=== PATIENT | female | born 1950 | race Caucasian/White ===

== ENCOUNTER → 2019-03-14 07:06 | Outpatient (CLI) | payer MEDICARE, SELFPAY ==
--- NOTE | 2019-03-14 07:52 | MRI_ITS ---
STUDY: MRI BRAIN WITH AND WITHOUT CONTRAST REASON FOR EXAM: Female, 68 years old. loss of smell/taste,dizziness, memory issues, H/A's, numbness of left cheek, finger tips. TECHNIQUE: Standardized multiplanar fat and water weighted pulse sequences were obtained. IV Dotarem 12 was administered for the contrast portion of the examination. COMPARISON: None. FINDINGS: Normal size of the ventricles and extra-axial spaces for the patient's age. There are a limited number of small white matter hyperintensities, distributed throughout the deep white matter tracts of the cerebral hemispheres, consistent with minimal chronic white matter ischemic changes. Normal bilateral basal ganglia. Normal thalami. There is no extra-axial fluid accumulation. Normal flow voids within the major intracranial circulation suggesting patency by spin echo criteria. Normal venous enhancement. There is no enhancing intra-axial or extra-axial abnormality. Normal sella turcica, pituitary gland, infundibular stalk, optic chiasm and hypothalamus. Normal tectal plate and pineal gland. Normal midbrain, adam and medulla. Normal cerebellum. Normal basal cisterns. Normal bilateral temporal bones. Normal bilateral internal auditory canals. MRI/Brain W/WO Contrast IMPRESSION: No acute intracranial abnormality or masses. Minimal chronic microvascular ischemic changes. Electronically Signed: Susi Knedall MD at 8:04 EDT Tel , Service support ,
[2019-03-14 07:56] LABS: CREATININE FINGERSTICK 0.7 mg/dL (0.55-1.02); EGFR FINGERSTICK > 60.0000 mL/min (>60)
== END ==
PROVIDERS: Family Provider Family Medicine; PCP Family Medicine; Referring Provider Family Medicine; Visit Provider Family Medicine
DX: R43.0 Anosmia (principal); R43.2 Parageusia; R51 Headache; R27.0 Ataxia, unspecified
CPT/HCPCS: 70553; A9575

== ENCOUNTER → 2020-01-22 20:00 | Outpatient (CLI) | payer MEDICARE, SELFPAY ==
[2020-01-07 06:24] VITALS: BMI 25.6
[2020-01-22] MEDS: Zolpidem Tartrate 5 MG Tablet PO (22:20)
== END ==
PROVIDERS: PCP Family Medicine; Visit Provider Internal Medicine Critical Care Medicine
DX: G47.33 Obstructive sleep apnea (adult) (pediatric) (principal)
CPT/HCPCS: 95811

== ENCOUNTER → 2020-02-10 06:46 | Outpatient (CLI) | payer MEDICARE, SELFPAY ==
[2020-01-07 06:24] VITALS: BMI 25.6
--- NOTE | 2020-02-10 10:38 | PFTCOMP ---
COMPLETE PULMONARY FUNCTION TEST INTERPRETATION Brief HPI: Patient is a 69 year old female, currently under the care of myself, who presents to [facility] for complete pulmonary function tests secondary to diagnosis of dyspnea. Respiratory therapist reports good effort and reproducible results. Interpretation: Forced expiration spirometry shows no large airways obstructive ventilatory defect with an FEV1 of 94% predicted. There is no significant bronchodilator response by strict ATS criteria. Spirograms are of good quality and plateau slowly, indicating slowly emptying areas of the lungs. The respiratory flow volume loop shows decreased expiratory flow rates at high lung volumes consistent with small airways obstruction. Lung volumes by body plethysmography show an elevated total lung capacity at 5.43 L, 125% predicted. All other lung volumes are increased symmetrically. Diffusion capacity by carbon monoxide is at the lower limit of normal at 66% predicted. The airway resistance is normal. No previous pulmonary function tests were available for review. Impression: Grossly normal pulmonary function test with some stigmata of small airways disease that appears to be reversible. Asthma would be a consideration.
== END ==
PROVIDERS: PCP Family Medicine; Referring Provider Internal Medicine Critical Care Medicine; Visit Provider Internal Medicine Critical Care Medicine
DX: R06.00 Dyspnea, unspecified (principal)
CPT/HCPCS: 94060; 94726; 94729

== ENCOUNTER 2020-07-20 16:48 | Outpatient (RCR) | payer MEDICARE, SELFPAY ==
[2020-04-26 10:38] VITALS: BMI 25.0
[2020-07-20] MEDS: COVID-19 VACC, MRNA(PFIZER)/PF 30 MCG/0.3 ML SYRINGE IM (16:42)
[2020-08-10] MEDS: COVID-19 VACC, MRNA(PFIZER)/PF 30 MCG/0.3 ML SYRINGE IM (16:24)
== END 2020-10-19 23:59 ==
LOC: IMMUN 16:48
PROVIDERS: PCP Family Medicine; Referring Provider Family Medicine; Visit Provider Family Medicine
DX: Z23 Encounter for immunization (principal)
CPT/HCPCS: 0001A; 0002A; 91300

== ENCOUNTER → 2020-09-13 07:08 | Outpatient (CLI) | payer MEDICARE, SELFPAY ==
[2020-08-04 13:48] VITALS: BMI 24.7
--- NOTE | 2020-09-13 07:11 | BI_ITS ---
MAMMOGRAPHY - BILATERAL SCREENING REASON FOR EXAM: Female, 70 years old. Routine annual screening examination. PERTINENT HISTORY: Aunt with breast cancer. TECHNIQUE: Digital bilateral breast kati (3D mammographic acquisition) in the CC and MLO projections. 2-D mediolateral oblique (MLO) and craniocaudad (CC) views of both breasts were obtained. CAD: Full Field Digital Mammography with Computer Added Detection was performed. COMPARISON: Comparison is made with prior outside examination dated 07/25/2016 FINDINGS: Breast Composition: There are scattered areas of fibroglandular density. There are no dominant masses or suspicious calcifications. No other significant abnormalities are identified. There has been no significant change since the prior study. BI/SCRN MAMM (CAD)W/KATI BILAT IMPRESSION: Stable bilateral screening mammogram. Yearly follow-up mammogram recommended. (A) ASSESSMENT CATEGORY: BIRADS Category 1: Negative. A letter regarding these results will be sent to the patient by the facility within 30 days. Approximately 10% of breast cancers are not detected by mammography. A normal mammogram should not delay biopsy of a clinically suspicious abnormality. [id number] Electronically Signed: Ricky Esposito MD at 9:35 EDT , Service support ,
== END ==
PROVIDERS: PCP Family Medicine; Referring Provider Family Medicine; Visit Provider Family Medicine
DX: Z12.31 Encounter for screening mammogram for malignant neoplasm of breast (principal)
CPT/HCPCS: 77063; 77067

== ENCOUNTER 2021-03-24 12:03 | Outpatient (CLI) | payer MEDICARE, SELFPAY ==
[2021-03-24] MEDS: 0.9% Saline Lock 10 ML Syringe IV (12:34)
[2021-03-24 12:40] VITALS: BP 117/81; PULSE 107; RESP 16; TEMP 37.1; O2SAT 97; BMI 23.3
[2021-03-24 13:15] VITALS: BP 118/76; PULSE 95; RESP 16; TEMP 36.9; O2SAT 97
[2021-03-24 14:13] VITALS: BP 117/55; PULSE 96; RESP 16; TEMP 36.9; O2SAT 96
== END 2021-03-24 14:14 | disposition home or self-care (01) ==
LOC: MS3OUT 12:04 → MS3 12:05
PROVIDERS: PCP Family Medicine; Referring Provider Nurse Practitioner Adult Health; Visit Provider Nurse Practitioner Adult Health
DX: Z23 Encounter for immunization (principal); U07.1 COVID-19
CPT/HCPCS: J7050; M0245; Q0245; A4216

== ENCOUNTER 2022-07-07 19:26 | Emergency (ER) | payer MEDICARE, SELFPAY ==
[2022-07-07 19:27] VITALS: BP 155/94; PULSE 100; RESP 17; TEMP 36.3; O2SAT 99; BMI 25.2
--- NOTE | 2022-07-07 20:00 | RAD_ITS ---
STUDY: X-RAY CHEST REASON FOR EXAM: Female, 72 years old. Chest pain. Asthma exacerbation for 10 days. Now with chest pain. Which extends into the jaw shoulders and arms TECHNIQUE: Single AP portable view of the chest. COMPARISON: None. FINDINGS: The lungs are clear and expanded. There is no demonstrated pleural abnormality. Normal size heart. Normal mediastinum and byron. Normal visualized pulmonary arteries. Normal visualized aortic arch and descending thoracic aorta. Fusion of the thoracolumbar spine. Normal visualized ribs, clavicles, and shoulders. There is no demonstrated abnormality of the visualized soft tissue structures of the upper abdomen. RAD/Chest 1 View (Portable) IMPRESSION: No acute cardiopulmonary disease. Electronically Signed: Oral Weinstein DO at 20:46 EST ,
--- NOTE | 2022-07-07 20:15 | EKG12_ITS ---
Test Reason : CP Blood Pressure : / mmHG Vent. Rate : 093 BPM Atrial Rate : 093 BPM P-R Int : 140 ms QRS Dur : 084 ms QT Int : 326 ms P-R-T Axes : 051 027 025 degrees QTc Int : 405 ms Normal sinus rhythm Normal ECG Confirmed by PIPER LA, JEANETTE ([id number]), multimedia editor BRET WELLS ([id number]) on 07/11/2022 8:59:21 AM Referred By: Confirmed By:JEANETTE SALDAÑA MD
--- NOTE | 2022-07-07 20:16 | EDS_ITS ---
HPI History of Present Illness Chief Complaint: Chest Pain Informant: patient Onset/Context/Timing Timing: Intermittent Quality: Positive for Pressure Location: Substernal (Radiation to back, bilateral arms, jaw) Current Severity: Gone Maximum Severity: Moderate Narrative Narrative: Patient presents after having 2 episodes of chest pain today. First occurred shortly after noon when she was riding in the backseat of a car. She developed pain which she describes as a pressure or heaviness to the mid chest with rad iation to her back, arms, jaw. Symptoms lasted approximate 20 minutes and then resolved. The second episode occurred around 430 this afternoon while she was using her nebulizer. She was recently seen for an asthma exacerbation and is currently on steroids. Although she has a history of GERD she does not feel like it has been worse recently. [facility] Medical History Anxiety Arthritis Asthma bladder muscle dysfuntion Chronic interstitial cystitis GERD (gastroesophageal reflux disease) History of depression History of pneumonia Hx of tuberculosis Mixed hyperlipidemia Neck pain Osteoarthritis Osteoporosis Scoliosis deformity of spine Sleep apnea Spondylosis Home Medications duloxetine 30 mg capsule,delayed release sprinkle 30 mg PO DAILY 01/07/20 [History Last Taken Unknown] lorazepam 0.5 mg tablet 0.5 mg PO DAILY PRN Anxiety 01/07/20 [History Last Taken Unknown] montelukast 10 mg tablet 10 mg PO DAILY 01/07/20 [History Last Taken Unknown] oxybutynin chloride 5 mg tablet 5 mg PO BID 01/07/20 [History Last Taken Unknown] latanoprost 0.005 % eye drops 1 drp EACH EYE QHS 03/24/21 [History Last Taken Unknown] budesonide-formoterol HFA 80 mcg-4.5 mcg/actuation aerosol inhaler (Symbicort) 2 puff inhalation BID #10.2 grams 10/31/21 [Rx Last Taken Unknown] acetaminophen 325 mg capsule 325 mg PO ONCE PRN fever or pain 05/02/22 [History Last Taken Unknown] albuterol sulfate 2.5 mg/3 mL (0.083 %) solution for nebulization 2.5 mg (3 mL) continuous nebulization ONCE #1 mL 05/02/22 [Clinic Last Taken Unknown] cetirizine 10 mg disintegrating tablet (Zyrtec) 10 mg PO BID PRN 05/02/22 [History Last Taken Unknown] dextromethorphan-guaifenesin ER 60 mg-1,200 mg tab,extend release,12hr (Mucinex DM) 1 tab PO Q12H 05/02/22 [History Last Taken Unknown] ipratropium 0.5 mg-albuterol 3 mg (2.5 mg base)/3 mL nebulization soln 3 ml inhalation Q4H PRN PRN SOB &/OR WHEEZING #180 mL 05/02/22 [Rx Last Taken Unknown] ipratropium 0.5 mg-albuterol 3 mg (2.5 mg base)/3 mL nebulization soln 3 ml inhalation Q4H PRN PRN SOB &/OR WHEEZING #180 mL 06/07/22 [Rx Last Taken Unknown] doxycycline hyclate 100 mg tablet 100 mg PO BID #20 tabs 06/08/22 [Rx Last Taken Unknown] prednisone 10 mg tablet 10 mg PO QDAY #30 tabs 06/08/22 [Rx Last Taken Unknown] albuterol sulfate 90 mcg/actuation aerosol inhaler 1 - 2 puff inhalation PRN PRN Shortness Of Breath #8.5 grams 06/15/22 [Rx Last Taken Unknown] Allergy/AdvReac Type Severity Reaction Status Date / Time amoxicillin Allergy Unknown Other Verified 07/07/22 19:31 Penicillins Allergy Unknown Other Verified 07/07/22 19:31 pneumococcal vaccine AdvReac Intermediate red, Verified 07/07/22 19:31 painful arm Family History Mother Heart disease Hypertension Cancer Seizures Father Cancer Surgical History H/O spinal fusion H/O: hysterectomy History of vitrectomy No pertinent past surgical history Social History Smoking Status: Never smoker ROS ROS ED Constitutional Constitutional ED: Denies chills or fever(s) Eyes Eyes: Denies change in vision or discharge from eye(s) ENT ENT ED: Denies discharge from eye(s), rhinorrhea or sore throat Cardiovascular Cardiovascular: Reports chest pain; Denies palpitations Respiratory/Chest Respiratory/Chest: Denies cough or dyspnea Gastrointestinal Gastrointestinal: Denies abdominal pain, diarrhea, nausea or vomiting Genitourinary Genitourinary ED: Denies dysuria Musculoskeletal Musculoskeletal: Reports back pain and extremity pain Integumentary Denies Abrasions or rash Neurologic Neurologic: Denies headache(s) or weakness Psychiatric Psychiatric: Denies anxiety or depression Endocrine Endocrinology: Denies polydipsia or polyuria Allergic/Immunologic Allergic/Immunologic ED: Denies lip swelling or urticaria EXAM Physical Exam Const Vital Signs: 07/07/22 19:27 07/07/22 20:38 07/07/22 20:39 Temperature 97.4 F L Temperature Source Temporal Pulse Rate 100 92 Respiratory Rate 17 12 Blood Pressure 155/94 H 133/87 H Blood Pressure Mean 114 102 Pulse Ox 99 94 93 Oxygen Delivery Method Room Air Room Air Room Air 07/07/22 21:09 07/07/22 22:09 Temperature Temperature Source Pulse Rate 90 Respiratory Rate 15 Blood Pressure 150/82 H 146/84 H Blood Pressure Mean 104 104 Pulse Ox 94 Oxygen Delivery Method Room Air Positive well nourished and well developed General Appearance ED: well developed HEENT Reports normocephalic and head/scalp atraumatic Eyes PERRL and EOMs intact bilaterally Neck supple Chest Wall inspection of chest normal and palpation of chest normal Resp normal respiratory effort and clear to auscultation bilaterally Cardio regular rate and regular rhythm GI normal to inspection, nondistended, normoactive bowel sounds Palpation: soft Extremity normal to inspection Neuro oriented x3 and no sensory deficits noted Sensorium / Orientation: alert Motor Exam: strength 5/5 throughout Psych mental status grossly normal Skin no rashes or lesions noted Heart Score History: Moderately Suspicious ECG: Normal Age: >/= 65 years Risk Factors: 1 or 2 Risk Factors Score: 4 MDM MDM MDM Narrative Medical decision making narrative: Patient was given 3 baby aspirin on arrival she is already taken 1 today. She is placed on phototypesetting equipment monitor. EKG obtained to evaluate for cardiac ischemia/arrhythmia. Lab work obtained to evaluate for leukocytosis, anemia, electrolyte derangement. D-dimer obtained to evaluate for possible blood clot. Troponin obtained x2 to evaluate for cardiac ischemia. Lab Data Attestation: I reviewed the patient's lab results. Labs: Laboratory Results - last 24 hr 07/07/22 07/07/22 07/07/22 20:35 20:35 20:35 WBC 5.6 RBC 4.38 Hgb 12.6 Hct 39.1 MCV 89.3 MCH 28.8 MCHC 32.2 RDW Std Deviation 43.8 RDW Coeff of Lydia 13.4 Plt Count 283 MPV 9.4 Immature Gran % (Auto) 0.200 Neut % (Auto) 85.3 H Lymph % (Auto) 9.1 L Morgan % (Auto) 4.8 Eos % (Auto) 0.2 Baso % (Auto) 0.4 Absolute Neuts (auto) 4.8 Absolute Lymphs (auto) 0.51 L Nucleated RBC % 0 Differential Comment SCANNED D-Dimer Quant (PE/DVT) 0.54 H* Sodium 140 Potassium 4.1 Chloride 107 Carbon Dioxide 24.0 Anion Gap 9 BUN 22 H Creatinine 0.88 Estim Creat Clear Calc 47.05 Est GFR (MDRD) Af Amer 81 Est GFR (MDRD) Non-Af 67 BUN/Creatinine Ratio 24.9 H Glucose 137 H Calcium 9.5 Troponin I High Sens 6 07/07/22 22:40 WBC RBC Hgb Hct MCV MCH MCHC RDW Std Deviation RDW Coeff of Lydia Plt Count MPV Immature Gran % (Auto) Neut % (Auto) Lymph % (Auto) Morgan % (Auto) Eos % (Auto) Baso % (Auto) Absolute Neuts (auto) Absolute Lymphs (auto) Nucleated RBC % Differential Comment D-Dimer Quant (PE/DVT) Sodium Potassium Chloride Carbon Dioxide Anion Gap BUN Creatinine Estim Creat Clear Calc Est GFR (MDRD) Af Amer Est GFR (MDRD) Non-Af BUN/Creatinine Ratio Glucose Calcium Troponin I High Sens 6 Radiography Chest X-Ray - ED: 1 View, Read by ED Physician, Chronic Changes and No Infiltrates Diagnostic Testing: Clinical Impression(s) from Imaging Studies Chest X-Ray 07/07/22 20:00 IMPRESSION: No acute cardiopulmonary disease. Electronically Signed: Oral Weinstein DO at 20:46 EST Reading Location ID and State: [address] [place] [address] Tel [phone], Service support , EKG Initial EKG: Attestation: I personally reviewed and interpreted this EKG as follows: Interpretation: Sinus Rhythm (Sinus at 93 with no acute ischemia.) Treatment and Re-Evaluation Narrative: On repeat evaluation patient resting comfortably. CBC reveals normal white count and hemoglobin. Chemistry studies are unremarkable. Initial troponin is 6 and delta troponin is 6. D-dimer slightly elevated at 0.54, but this is normal when age-adjusted. Chest x-ray per my interpretation reveals no acute abnormalities. Radiology interpretation is reviewed and agrees. I did voiced to the patient and family that I am concerned about her presentation. I did recommend observation overnight for cycling of cardiac enzymes and stress test. Because the patient would only be in the hospital under observation status, they are declining stating that their insurance will not cover this. Return instructions are provided and she is made aware she can return at any point. Discharge Plan Triage Chief Complaint: Chest Pain ED Provider: Yulissa Webb Dx/Rx/DC Orders Clinical Impression: Chest pain Instructions: ED Chest Pain, Uncertain Cause Prescriptions: No Action montelukast 10 mg tablet 10 mg PO DAILY duloxetine 30 mg capsule, delayed rel sprinkle 30 mg PO DAILY oxybutynin chloride 5 mg tablet 5 mg PO BID lorazepam 0.5 mg tablet 0.5 mg PO DAILY PRN (Reason: Anxiety) acetaminophen 325 mg capsule 325 mg PO ONCE PRN (Reason: fever or pain) Zyrtec 10 mg tablet,disintegrating 10 mg PO BID PRN budesonide-formoterol [Symbicort] 80-4.5 mcg/actuation HFA aerosol inhaler 2 puff inhalation BID Qty: 10.2 3RF albuterol sulfate 2.5 mg /3 mL (0.083 %) solution for nebulization 2.5 mg continuous nebulization ONCE Qty: 1 0RF dextromethorphan-guaifenesin [Mucinex DM] 60-1,200 mg tablet extended release 12 hr 1 tab PO Q12H ipratropium-albuterol 0.5 mg-3 mg(2.5 mg base)/3 mL solution for nebulization 3 ml inhalation Q4H PRN PRN (Reason: SOB &/OR WHEEZING) Qty: 180 6RF latanoprost 0.005 % drops 1 drp EACH EYE QHS ipratropium-albuterol 0.5 mg-3 mg(2.5 mg base)/3 mL solution for nebulization 3 ml inhalation Q4H PRN PRN (Reason: SOB &/OR WHEEZING) Qty: 180 6RF prednisone 10 mg tablet 10 mg PO QDAY Qty: 30 0RF Rx Instructions: take 4 tabs for three days, then 3 tabs for three days, then 2 tabs for three days, then 1 tab for 3 days doxycycline hyclate 100 mg tablet 100 mg PO BID Qty: 20 0RF albuterol sulfate 90 mcg/actuation HFA aerosol inhaler 1 - 2 puff INHALATION PRN PRN (Reason: Shortness Of Breath) Qty: 8.5 2RF Primary Care Provider: Andrea Jack Referrals: Andrea Jack DO [Primary Care Provider] - 5-7 Days Disposition Disposition: Home, Self Care
[2022-07-07 20:38] VITALS: O2SAT 94
[2022-07-07 20:39] VITALS: BP 133/87; PULSE 92; RESP 12; O2SAT 93
[2022-07-07 20:42] LABS: Absolute Lymphocyte Count 0.51 X10^3/uL (0.83-4.51); Absolute Neutrophil Count 4.8 X10^3/uL (2.0-7.7); Basophil# 0.02 X10^3/uL; Basophil% 0.4 % (0-1); Eosinophil# 0.01 X10^3/uL; Eosinophils% 0.2 % (0-5); Hematocrit 39.1 % (37-47); Hemoglobin 12.6 g/dL (12.0-15.0); Lymphocyte # 0.51 X10^3/ul (0.83-4.51); Lymphocyte % 9.1 % (19-41); Mean Corp Hgb Conc 32.2 g/dL (32-36); Mean Corpuscular Hgb 28.8 pg (27.0-32.0); Mean Corpuscular Volume 89.3 fL (81-99); Mean Platelet Vol. 9.4 fl (6.2-12.0); Monocyte# 0.27 X10^3/uL; Monocyte% 4.8 % (0-10); NRBC Flagged by Analyzer 0 % (0-5); Neutrophil # 4.79 X10^3/uL (2.7-7.7); Neutrophil % 85.3 % (47-70); POSITIVE DIFFERENTIAL YES; Platelet Count 283 K/mm3 (150-450); RBC Distribution Width CV 13.4 % (11.6-14.6); RBC Distribution Width SD 43.8 fl (35.1-43.9); Red Blood Count 4.38 M/mm3 (4.2-5.4); White Blood Count 5.6 K/mm3 (4.4-11.0)
[2022-07-07 20:43] LABS: Differential Indicated SCAN CRITERIA MET
[2022-07-07] MEDS: 0.9% Normal Saline 1,000 ML 150 ML IV (20:44)
[2022-07-07] MEDS: Aspirin 81 MG TAB.CHEW 243 MG PO (20:44)
[2022-07-07 21:05] LABS: Anion Gap 9 (5-15); BUN 22 mg/dL (7-18); BUN/Creat Ratio 24.9 RATIO (10-20); Calcium,Total 9.5 mg/dL (8.5-10.1); Chloride 107 mmol/L (98-107); Creatinine, Serum 0.88 mg/dL (0.55-1.02); EST Glomerular Filtration Rate 67 mL/min (>60); Est Glom Filt Rate - Afr Amer 81 mL/min (>60); Estimated Creatinine Clearance 47.05 ml/min; Glucose 137 mg/dL (74-106); Potassium 4.1 mmol/L (3.5-5.1); Sodium Level 140 mmol/L (136-145); Troponin-I HS (w/2H Reflex) 6 pg/mL (3.0-54.0)
[2022-07-07 21:09] VITALS: BP 150/82; PULSE 90; RESP 15; O2SAT 94
[2022-07-07 21:38] LABS: D-Dimer Quantitative (DVT/PE) 0.54 FEU/ug/m (0.27-0.49)
[2022-07-07 21:46] LABS: Differential Comment SCANNED
[2022-07-07 22:09] VITALS: BP 146/84
[2022-07-07 22:39] LABS: Reflex Troponin-HS? (from REC) Y
[2022-07-07 23:13] LABS: Troponin-I HS 6 pg/mL (3.0-54.0)
[2022-07-07 23:59] VITALS: BP 153/92; PULSE 76; RESP 18; O2SAT 100
== END 2022-07-08 00:04 | disposition home or self-care (01) ==
PROVIDERS: Emergency Provider Emergency Medicine; PCP Family Medicine; Visit Provider Emergency Medicine
DX: R07.9 Chest pain, unspecified (principal); E78.2 Mixed hyperlipidemia
CPT/HCPCS: 71045; 80048; 84484; 85025; 85379; 93005; 96360; 96361; 99285; J7030; A4216

== ENCOUNTER → 2022-07-14 | Outpatient (CLI) | payer MEDICARE, SELFPAY ==
--- NOTE | 2022-07-14 07:27 | ECHOD_ITS ---
Reason For Study: Dyspnea/SOB Procedure This was a 2D Doppler, Color Flow transthoracic echocardiogram. The exam was of adequate technical quality. Exam performed in department. Left Ventricle Normal LV size. Sigmoid septum. Left ventricular systolic function is normal. The estimated ejection fraction is 65 %. Diastolic function is indeterminate. No regional wall motion abnormalities noted. Right Ventricle Normal RV size. Normal systolic function. Atria Normal left atrium. Normal right atrium. No doppler evidence for ASD. Mitral Valve There is no mitral annular calcification. Normal mitral valve. Mild (1+) eccentric mitral valve insufficiency. Tricuspid Valve Normal tricuspid valve. Mild tricuspid valve insufficiency. Right ventricular systolic pressure estimated to be 36 mmHg. Aortic Valve Trisinus/trileaflet aortic valve. Mild focal aortic valve calcification. Pulmonic Valve The pulmonic valve is not well visualized. Great Vessels Normal sized aortic root. Pericardium/Pleural No pericardial effusion. Epicardial fat. MMode/2D Measurements & Calculations LVIDd: 4.4 cm IVSd: 0.85 cm Ao root diam: 3.6 cm LVIDs: 3.0 cm LVPWd: 0.77 cm LA dimension: 4.4 cm RVDd: 3.5 cm FS: 31.8 % LAV(MOD-bp): 48.8 ml LA A4 area: 14.4 cm2 RA A4 area: 12.9 cm2 LAV(MOD-bp) Indexed: 29.8 ml/m2 LAV(MOD-sp2): 50.7 ml LAV(MOD-sp4): 38.3 ml Time Measurements MV dec time: 0.24 sec Doppler Measurements & Calculations MV E max iban: 61.3 cm/sec Lat Peak E' Iban: 6.2 cm/sec Med Peak E' Iban: 8.7 cm/sec MV A max iban: 92.0 cm/sec E/E' lat: 9.9 E/E' med: 7.0 MV E/A: 0.67 MV V2 max: 104.6 cm/sec MV dec slope: 255.8 cm/sec2 Ao V2 max: 124.3 cm/sec MV max P.4 mmHg Ao max P.2 mmHg MV V2 mean: 51.1 cm/sec MV mean P.3 mmHg MV V2 VTI: 20.6 cm LV V1 max: 106.3 cm/sec PA V2 max: 79.6 cm/sec TR max iban: 288.9 cm/sec LV V1 max P.5 mmHg TR max P.4 mmHg ECHO/Echo Complete Interpretation Summary Left ventricular systolic function is normal. The estimated ejection fraction is 65 %. Sigmoid septum. Mild (1+) eccentric mitral valve insufficiency. Mild tricuspid valve insufficiency. Mild focal aortic valve calcification. Epicardial fat. Right ventricular systolic pressure estimated to be 36 mmHg. Diastolic function is indeterminate. Ordering Physician: Becki Eli Referring Physician: Andrea Jack Performed By: Dioni Hutchins RCS
== END | disposition home or self-care (01) ==
LOC: CVS 07:26
PROVIDERS: PCP Family Medicine; Visit Provider Nurse Practitioner Acute Care
DX: R06.00 Dyspnea, unspecified (principal); R06.02 Shortness of breath
CPT/HCPCS: 93306

== ENCOUNTER → 2022-07-27 | Outpatient (CLI) | payer MEDICARE, SELFPAY ==
--- NOTE | 2022-07-27 08:27 | BD_ITS ---
STUDY: DUAL ENERGY X-RAY ABSORPTIOMETRY / DXA REASON FOR EXAM: Female, 72 years old. Z79.52 TECHNIQUE: Bone Mineral Density (BMD) measurements of both forearms were obtained. COMPARISON: None. FINDINGS: Right Forearm: g/cm2 (0.480) / T-score (-1.8) / Z-score (0.2) Left Forearm: g/cm2 (0.493) / T-score (-1.6) / Z-score (0.4) BD/Dexa Bone Density/Append Skel IMPRESSION: The patient is considered osteopenic as outlined below according to World [employer] Organization (WHO) criteria with a moderate fracture risk. Reference Information: The T-score is the number of standard deviations above or below the standard which is normal for young adults at their peak bone mineral density. The World Health Organization (WHO) interprets the T-scores as follows: Above -1 Normal bone density Between -1 and -2.5 Osteopenia Equal to / or below -2.5 Osteoporosis As a practical clinical guideline, osteopenia may be graded as follows: Mild -1 through -1.5 Moderate -1.6 through -2.0 Severe -2.1 through -2.4 The Z-score is the number of standard deviations above or below age-matched controls. A Z-score of less than -1.5 would be considered abnormal. References: 1. NIH Osteoporosis and Related Bone Diseases www osteo.org 2. International Society for Clinical Densitometry www iscd.org 3. National Osteoporosis Foundation www nof.org Electronically Signed: Ricky Esposito MD at 9:09 EDT ,
== END | disposition home or self-care (01) ==
LOC: OPBD 08:12
PROVIDERS: PCP Family Medicine; Referring Provider Family Medicine; Visit Provider Family Medicine
DX: M81.0 Age-related osteoporosis without current pathological fracture (principal); Z79.52 Long term (current) use of systemic steroids
CPT/HCPCS: 77080; 77081

== ENCOUNTER → 2022-08-02 | Outpatient (CLI) | payer MEDICARE, SELFPAY ==
--- NOTE | 2022-08-03 08:19 | PFT_ITS ---
INTRODUCTION: The patient is a 72-year-old female that presents for pulmonary function studies secondary to a diagnosis of shortness of breath. Respiratory therapy reported good patient effort. Bronchodilators were used during testing. INTERPRETATION: Forced expiration spirometry demonstrates the presence of a mild large airways obstructive ventilatory defect. There was no significant response to aerosolized bronchodilators. Spirograms are of good quality but do not plateau indicating slow emptying of the lungs. Body plethysmography was performed and revealed lung volumes to be within normal limits. Diffusing capacity by single breath CO was also within normal limits. IMPRESSION: Irreversible mild large airways obstructive ventilatory defect with preserved l jenise volumes and diffusing capacity.
== END | disposition home or self-care (01) ==
PROVIDERS: PCP Family Medicine; Referring Provider Nurse Practitioner Acute Care; Visit Provider Nurse Practitioner Acute Care
DX: R06.00 Dyspnea, unspecified (principal)
CPT/HCPCS: 94060; 94726; 94729

== ENCOUNTER → 2022-08-21 | Outpatient (CLI) | payer MEDICARE, SELFPAY ==
[2022-08-21 12:42] VITALS: PULSE 105; PULSE 107; PULSE 110; PULSE 112; PULSE 86; PULSE 87; O2SAT 95; O2SAT 96; O2SAT 98
--- NOTE | 2022-08-22 05:54 | WT_ITS ---
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 device used: None Pre-test Oxygen Delivery Method Room Air Pulse Ox (%) 96 Pulse Rate (60-100 beats/min) 87 Dyspnea Rebeca Scale (0-10) 0 Exertion Rebeca Scale (6-20) 6 1st minute Oxygen Delivery Method Room Air Pulse Ox (%) 96 Pulse Rate (60-100 beats/min) 105 H 2nd minute Oxygen Delivery Method Room Air Pulse Ox (%) 96 Pulse Rate (60-100 beats/min) 107 H 3rd minute Oxygen Delivery Method Room Air Pulse Ox (%) 95 Pulse Rate (60-100 beats/min) 110 H 4th minute Oxygen Delivery Method Room Air Pulse Ox (%) 98 Pulse Rate (60-100 beats/min) 110 H 5th minute Oxygen Delivery Method Room Air Pulse Ox (%) 96 Pulse Rate (60-100 beats/min) 112 H 6th minute Oxygen Delivery Method Room Air Pulse Ox (%) 98 Pulse Rate (60-100 beats/min) 112 H Dyspnea Rebeca Scale (0-10) 1 Exertion Rebeca Scale (6-20) 12 Post-test Oxygen Delivery Method Room Air Pulse Ox (%) 98 Pulse Rate (60-100 beats/min) 86 Full Laps Walked 25 Partial Lap, Number of Tiles Walked 5 Total Distance Walked (ft) 1480 Interpretation Interpretation: The patient was able to ambulate a total of 1480 feet over the course of 6 minutes on room air with no assistive devices or breaks. The patient experienced no significant desaturation, but did have a peak heart rate of 112 bpm. These findings are consistent with deconditioning. Recommendations Recommendations: No supplemental oxygen is indicated at this time.
== END | disposition home or self-care (01) ==
LOC: PSN 12:12
PROVIDERS: PCP Family Medicine; Referring Provider Nurse Practitioner Acute Care; Visit Provider Nurse Practitioner Acute Care
DX: R06.00 Dyspnea, unspecified (principal)
CPT/HCPCS: 94618

== ENCOUNTER → 2022-10-02 | Outpatient (CLI) | payer MEDICARE, SELFPAY ==
--- NOTE | 2022-10-02 17:36 | STRESSREP ---
Stress Test Report Exercise myocardial perfusion stress test. 72-year-old lady with a history of chest pain Stress protocol: Resting EKG demonstrates normal sinus rhythm with a rate of 66 bpm resting blood pressure is 118/74 mmHg. The patient exercised according to the regular Aj protocol for a total duration of 4 minutes and 43 seconds attaining a maximum heart rate of 142 bpm which was 94% of maximum predicted heart rate; the maximum workload was 7 metabolic equivalents. At rest there were no ST or T wave changes noted to suggest ischemia and at peak exercise upsloping ST changes only were noted which did not meet the criteria for ischemia. No clinical angina was noted the test was terminated due to the target heart rate being achieved/fatigue. The peak blood pressure was 160/74 mmHg. Rate-pressure product was 21,700. Myocardial perfusion protocol. 11.8 mCi of technetium 99m sestamibi was injected at rest. The patient exercised according to regular Aj protocol for total duration of 4 minutes and 43 seconds and at peak exercise 32.1 mCi of technetium 99m sestamibi was injected stress images were obtained stress and rest images were reconstructed in comparing the short axis vertical long and horizontal long axis. Gated images were also obtained. Perfusion SPECT analysis: Review of the stress images demonstrate normal uptake of tracer noted in all areas of the myocardium. The resting images similarly demonstrate normal uptake of tracer noted in all areas of the myocardium. No areas of reversibility are noted to suggest ischemia no previous infarct was noted. Gated SPECT analysis: The gated ejection fraction is 81%. Conclusion: Normal exercise myocardial perfusion stress test at a moderate workload Preserved ejection fraction.
== END | disposition home or self-care (01) ==
LOC: CVS 06:17
PROVIDERS: PCP Family Medicine; Referring Provider Family Medicine; Visit Provider Family Medicine
DX: R07.9 Chest pain, unspecified (principal); R06.09 Other forms of dyspnea
CPT/HCPCS: 78452; 93017; A9500; A4216

== ENCOUNTER → 2022-10-27 | Outpatient (CLI) | payer MEDICARE, SELFPAY ==
--- NOTE | 2022-10-27 13:01 | BI_ITS ---
MAMMOGRAPHY - BILATERAL SCREENING REASON FOR EXAM: Female, 72 years old. Routine annual screening examination. PERTINENT HISTORY: Aunt with breast cancer. TECHNIQUE: Digital bilateral breast kati (3D mammographic acquisition) in the CC and MLO projections. 2-D mediolateral oblique (MLO) and craniocaudad (CC) views of both breasts were obtained. CAD: Full Field Digital Mammography with Computer Added Detection was performed. COMPARISON: Comparison is made with prior study dated September 13, 2020. FINDINGS: Breast Composition: There are scattered areas of fibroglandular density. There are no dominant masses or suspicious calcifications. No other significant abnormalities are identified. There has been no significant change since the prior study. BI/SCRN MAMM (CAD)W/KATI BILAT IMPRESSION: Stable bilateral screening mammogram. Yearly follow-up mammogram recommended. (A) ASSESSMENT CATEGORY: BIRADS Category 1: Negative. A letter regarding these results will be sent to the patient by the facility within 30 days. Approximately 10% of breast cancers are not detected by mammography. A normal mammogram should not delay biopsy of a clinically suspicious abnormality. [id number] Electronically Signed: Ricky Esposito MD at 14:02 EDT ,
== END | disposition home or self-care (01) ==
LOC: OPBI 12:56
PROVIDERS: PCP Family Medicine; Referring Provider Family Medicine; Visit Provider Family Medicine
DX: Z12.31 Encounter for screening mammogram for malignant neoplasm of breast (principal)
CPT/HCPCS: 77063; 77067

== ENCOUNTER → 2025-02-11 | Outpatient (CLI) | payer MEDICARE, SELFPAY ==
--- NOTE | 2025-02-11 07:40 | BI_ITS ---
EXAM: SCRN MAMM (CAD)W/KATI BILAT DATE: 02/11/2025 CLINICAL HISTORY: F, Age 74 y/o , SCREENING Routine screening TECHNIQUE: Procedure Code: [id number] Modality: MG Procedure: SCRN MAMM (CAD)W/KATI BILAT COMPARISON: Prior exam(s) dated 10/27/2022. FINDINGS: TISSUE DENSITY: There are scattered areas of fibroglandular density. Bilateral Breast Mammographic Findings: No significant masses, calcifications or other abnormalities are identified. No interval change BI/SCRN MAMM (CAD)W/KATI BILAT IMPRESSION: Stable screening mammogram OVERALL FINAL ASSESSMENT BI-RADS 1: NEGATIVE. RECOMMENDATION: Routine annual follow-up in 1 Year Additional Recommendation none A letter with findings and recommendations will be mailed to the patient. Reading Location: [id number]
== END | disposition home or self-care (01) ==
LOC: OPBI 07:39
PROVIDERS: PCP Family Medicine; Referring Provider Family Medicine; Visit Provider Family Medicine
DX: Z12.31 Encounter for screening mammogram for malignant neoplasm of breast (principal)
CPT/HCPCS: 77063; 77067

== ENCOUNTER → 2025-02-27 | Outpatient (CLI) | payer MEDICARE, SELFPAY ==
[2025-02-27 12:31] LABS: Hematocrit 42.1 % (37-47); Hemoglobin 13.4 g/dL (12.0-15.0); Mean Corp Hgb Conc 31.8 g/dL (32-36); Mean Corpuscular Volume 88.6 fL (81-99); Platelet Count 221 K/mm3 (150-450); Red Blood Count 4.75 M/mm3 (4.2-5.4); White Blood Count 3.4 K/mm3 (4.4-11.0)
[2025-02-27 12:55] LABS: RBC Distribution Width CV 13.2 % (11.6-14.6); RBC Distribution Width SD 42.6 fl (35.1-43.9)
[2025-02-27 13:31] LABS: AST(SGOT) 20 U/L (<=31); Alanine Aminotransfer ALT/SGPT 14 U/L (<=34); Albumin, Serum 4.5 g/dL (3.4-4.8); Alkaline Phosphatase 77 U/L (35-104); Anion Gap 10 (5-15); BUN 27 mg/dL (4-19); BUN/Creat Ratio 28.3 RATIO (10-20); Calcium,Total 9.8 mg/dL (7.6-11.0); Carbon Dioxide 25.8 mmol/L (21.0-32.0); Chloride 104 mmol/L (98-108); Cholesterol 228 mg/dL (<=200); Globulin 2.9 g/dL (2.2-4.2); Glucose 92 mg/dL (70-99); Low Density Lipoprotein Calc. 142 mg/dL; Potassium 4.6 mmol/L (3.3-5.1); Triglycerides 92 mg/dL; Very Low Density Lipoprotein 18 mg/dL (5-40); cholesterol:hdl ratio screen 3.25
== END | disposition home or self-care (01) ==
LOC: MTLAB 10:40
PROVIDERS: PCP Family Medicine; Referring Provider Family Medicine; Visit Provider Family Medicine
DX: E78.2 Mixed hyperlipidemia (principal); E01.0 Iodine-deficiency related diffuse (endemic) goiter; R53.83 Other fatigue
CPT/HCPCS: 36415; 80053; 80061; 84443; 85007; 85025; 85027